=== PATIENT | female | born 1960 | race African-American/Black ===

== ENCOUNTER 2021-08-04 18:33 | Emergency (ER) | payer MEDICAID ==
[~2021-08-04] VITALS: Ht 160 cm; Wt 105.0 kg
[~2021-08-04 18:33] MED LIST: ARIP15TA27 PO; ATEN-73 PO; CHOL200016 PO; DIVA-80 PO; DSS100 PO; LEVO25TA9 PO; OMEP20 PO
[2021-08-04 20:59] VITALS: BP 158/81
== END 2021-08-05 01:33 | disposition home or self-care (01) ==
LOC: EMS 18:37
DX: F20.0 Paranoid schizophrenia (principal); F31.9 Bipolar disorder, unspecified; E11.9 Type 2 diabetes mellitus without complications; K21.9 Gastro-esophageal reflux disease without esophagitis; I10 Essential (primary) hypertension; F17.210 Nicotine dependence, cigarettes, uncomplicated
CPT/HCPCS: 99284; Z7502